=== PATIENT | male | born 2000 | race Caucasian/White ===

== ENCOUNTER 2025-07-05 03:17 | Emergency (ER) | payer MEDICAID, SELFPAY ==
--- OUTSIDE RECORDS SUMMARY | 2025-07-04 19:39 | XMS RPT_ITS ---
Author Name Auto Generated Organization OHIP Care Team Providers Care Foam Caster Name Role Phone ERNIE KING Attending Unavailable WILVER PURVIS Primary Care Unavailable WILVER PURVIS Primary Care Unavailable SUNSHINE WATERS Attending Unavailable BERNY RODRIGUEZ, ZOILA Saini Attending Unavail able PHYSICIAN, NONE Primary Care Unavailable MERLIN RODRIGUEZ, CYNTHIA Attending Unavailable PROBLEMS DATE TYPE CONDITION / CODE ATTENDING STATUS [facility] 07/04/2025 Unknown Dizziness and giddiness / R42(ICD-10) ZOILA ARRIETA MD Active [facility] 06/30/2025 Active Rash / R21(ICD-10) SUNSHINE WATERS Active [facility] 05/12/2025 Active Bilateral impact ed cerumen / H61.23(ICD-10) ERNIE KING Active [facility] 04/11/2025 Admitting Diagnosis Hypersomnia, unspecified / G47.10(ICD-10) CYNTHIA BOYER MD Active [facility] 04/11/2025 Final Diagnosis (Discharge) Hypersomnia, unspecified / G47.10(ICD-10) CYNTHIA BOYER MD Active [facility] PROCEDURES No Procedure Records Found RESULTS CBC Collected: 8:12 PM Status: F Source: [facility] TYPE CODE TESTS RESULT OUT OF RANGE REFERENCE UNITS LAB WBC(LOINC) WBC 13.9 High 4.5-10.8 10 3/mcL LAB RBCCT(LOINC) RBC 5.31 4.50-6.00 10 6/mcL LAB HGB(LOINC) Hgb 15.1 13.0-17.5 G/dL LAB HCT(LOINC) Hct 43.3 40.0-52.0 % LAB MCV(LOINC) MCV 81.4 81.0-100.0 fL LAB MCH(LOINC) MCH 28.3 27.0-33.0 pg LAB MCHC(LOINC) MCHC 34.8 32.0-36.0 G/dL LAB RDW(LOINC) RDW 13.9 11.5-15.5 % LAB PLT(LOINC) Platelet 237 150-450 10 3/mcL LAB MPV(LOINC) MPV 10.0 6.4-10.5 fL Performed By: #### ANEU, CBC , ADIFF, GFR, BMP, W #### [address] [address] .AUTO DIFF Collected: 07/04/2025 8:12 PM Status: F Source: [facility] TYPE CODE TESTS RESULT OUT OF RANGE REFERENCE UNITS LAB RU(LOINC) Neutrophil % 79.1 High 50.0-75.0 % LAB LYM(LOINC) Lymphocyte % 12.0 Low 20.0-40.0 % LAB MON(LOINC) Monocyte % 8.2 2.0-13.0 % LAB EO(LOINC) Eosinophil % 0.4 0.0-6.0 % LAB BAS(LOINC) Basophil % 0.3 0.0-2.5 % LAB ABLYM(LOINC) Lymphocyte, Absolute 1.7 0.9-4.3 10 3/mcL LAB JOSIE(LOINC) Monocyte, Absolute 1.1 0.1-1.4 10 3/mcL LAB AEOS(LOINC) Eosinophil, Absolute 0.1 0.0-0.7 10 3/mcL LAB ABAS(LOINC) Basophil, Absolute 0.0 0.0-0.3 10 3/mcL Performed By: #### ANEU, CBC , ADIFF, GFR, BMP, W #### [address] [address] .NEUABS Collected: 8:12 PM Status: F Source: [facility] TYPE CODE TESTS RESULT OUT OF RANGE REFERENCE UNITS LAB ANEU(LOINC) Neutrophil, Absolute 11.0 High 2.3-8.1 10 3/mcL Performed By: #### ANEU, CBC , ADIFF, GFR, BMP, STU #### [address], [place] [address] .W Collected: 07/04/2025 8:12 PM Status: F Source: [facility] TYPE CODE TESTS RESULT OUT OF RANGE REFERENCE UNITS LAB MDW([facility]) Monocyte Distribution Width 17.41 0.00-20.00 Result Comment: For ED adult patients suspected of sepsis, MDW<=20.0 does not rule out sepsis or risk of sepsis Performed By: #### ANEU, CBC , ADIFF, GFR, BMP, MDW #### [id number] [place], [place] [address] BMP Collected: 07/04/2025 8:12 PM Status: F Source: [facility] TYPE CODE TESTS RESULT OUT OF RANGE REFERENCE UNITS LAB GLU(LOINC) Glucose Level 100 70-105 mg/dL LAB NA(LOINC) Sodium Level 142 136-145 mmol/L LAB K(LOINC) Potassium Level 3.9 3.5-5.1 mmol/L LAB CL(LOINC) Chloride 106 98-107 mmol/L LAB CO2(LOINC) CO2 26 22-29 mmol/L LAB EBAL(LOINC) Electrolyte Balance 10.0 4.0-15.0 mEq/L LAB BUN(LOINC) BUN 18 7-18 mg/dL LAB CRE(LOINC) Creatinine Lvl (s) 0.92 0.67-1.17 mg/dL LAB BC(LOINC) BUN/Creatinine Ratio 20 7-27 ratio LAB CA(LOINC) Calcium Lvl 8.9 8.4-10.2 mg/dL Performed By: #### ANEU, CBC , ADIFF, GFR, BMP, MDW #### [id number] [place], [place] [address] .GFR Collected: 07/04/2025 8:12 PM Status: F Source: [facility] TYPE CODE TESTS RESULT OUT OF RANGE REFERENCE UNITS LAB eGFR(LOINC) Estimated Glomerular Filtration Rate 117 ml/min/1. 73sqm Result Comment: Stages of Chronic Kidney Disease (CKD) Stage Description eGFR(ml/min/1.73 sq.m.) CKD 1 Normal kidney function or >=90 normal kindney function with possible kidney damage (ex. Proteinuria) CKD 2 Kidney damage with mild loss 60-89 of kidney function CKD 3a Mild to moderate loss of kidney 45-59 function CKD 3b Moderate to severe loss of 30-44 of kindey function CKD 4 Severe loss of kidney function 15-29 CKD 5 Kidney failure <15 Note: (go live 2024) the eGFR calculation was updated to the 2020 CKD-EPI creatinine equation without a race factor to calculate the eGFR results. Performed By: #### ANEU, CBC , ADIFF, GFR, BMP, MDW #### [address] [place], [place] [address] PROGRESS Observed: 06/30/2025 4:36 PM Status: COMPLETED Source: [facility] ID: [id number] Author: SUNSHINE WATERS APRN.BUNDLE TIER AND LABELER Service: ? Author Type: Nurse Practitioner Type: Progress Notes Filed: 06/30/2025 17:07 Note Text: PATIENT NAME: Luis F Briones DATE OF : 2000 TODAYS' DATE: 06/30/2025 Recording using Dianxin software for draft documentation of the visit was discussed with the patient/authorized client relations representative; all questions welcomed and answered. Patient/authorized client relations representative agreed to proceed Subjective: The patient is a 25-year-old male presenting for evaluation of a one-week history of pruritic, burning rash of the scrotum and penis. History of Present Illness: The patient is a 25-year-old male presenting with pruritus and burning sensation in the genital area. Pruritus and Burning Sensation in Genital Area: - Onset of symptoms approximately one week ago. - Describes scrotum and penis as "smaller than usual" and "shriveled." - Severe pruritus and burning sensation in the scrotum and penis. - Denies fever, dysuria, or drainage. - Applied clotrimazole cream with significant burning sensation. - Recently started using Tretinoin 0.1% for stretch cardenas; unsure if it contacted the scrotum. - Denies recent sexual activity in the past 6 months; considers STD risk unlikely. 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 - Engages in frequent walking around the pool in a humid environment. 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 - Has lost 20 lbs recently. - History of powerlifting and weight gain; currently trying to lose weight to meet requirements. - History of ACL, MCL, meniscus, and PCL injuries. Review of Systems: Constitutional: (-) fever Genitourinary: (+) decreased testicular size, (+) scrotal pain, (+) genital burning, (+) genital pruritus, (-) genital discharge, (-) dysuria Allergies: Allergies: No Known Allergies Past Medical History: No past medical history on file. Past Surgical History: No past surgical history on file. Family History: No family history on file. Tobacco History: Tobacco Use: Not on file Medications: Current Outpatient Medications Medication Sig Dispense Refill tretinoin (RETIN-A) 0.1 % cream APPLY A THIN LAYER TO THE AFFECTED AREAS EVERY NIGHT nystatin (MYCOSTATIN) powder Apply 1 application to affected area four times daily for 7 days. 15 g 0 fluconazole (DIFLUCAN) 150 mg tablet Take 1 tablet by mouth every 72 hours for 3 doses. 3 tablet 0 carbamide peroxide (DEBROX) 6.5 % otic solution Use 4-5 drops in both ears every hour as needed. (Patient not taking: Reported on 06/30/2025) 15 mL 0 No current facility-administered medications for this visit. Vitals: BP 127/79 (BP Site: Right Arm, BP Position: Sitting, BP Cuff Size: Regular Adult) Pulse 76 Temp 36.3 ?C (97.3 ?F) (Right Tympanic) Resp 18 Ht 185.4 cm (6' 1") Wt 116.3 kg (256 lb 4.6 oz) SpO2 98% BMI 33.81 kg/m? Physical Exam: Physical Exam Vitals reviewed. 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 Constitutional: General: He is not in acute distress. Appearance: He is not ill-appearing, toxic-appearing or diaphoretic. Pulmonary: Effort: Pulmonary effort is normal. Genitourinary: Penis: Erythema and tenderness present. No discharge, swelling or lesions. Neurological: Mental Status: He is alert. Psychiatric: Behavior: Behavior is cooperative. ASSESSMENT/PLAN: (R21) Rash (primary encounter diagnosis) Plan: nystatin (MYCOSTATIN) powder, fluconazole (DIFLUCAN) 150 mg tablet Bright erythema to the bilateral testicles. Will treat fungal rash with nystatin powder and diflucan for 3 doses, 1 dose every 72 hrs. -Keep area clean and dry. Non scented antimicrobial soap and water. -If you have significant itching please avoid heat as this can make the itching worse. Cool compresses for comfort. -Do not pick at the site. This can lead to a secondary infection. -Signs of worsening infection: increased in size, streaking up or down the skin, fever of 101 F or higher, or copious drainage from the site. -If no improvement, follow up with primary care, may need more of a workup than what is offered in express care. -Be seen immediately with worsening symptoms. - See patient instructions for further recommendations. - Pt education along with discharge instructions given to pt - Discussed Red Flag signs and when to go to ER. - Pt agreeable with plan and verbalizes understanding. - Follow up with PCP if symptoms worsen or do not improve in the next 2-3 days. Sunshine Waters APRN.CNP 4:36 PM 06/30/25 Disposition The patient was discharged. Medical Decision Making: Level: 4 - Moderate CNOV Observed: 06/30/2025 4:35 PM Status: COMPLETED Source: [facility] Office Visit (ALEX) LUIS F BRIONES ([id number]) 2000 M Date Time Provider Department 06/30/25 4:35 PM SUNSHINE WATERS During your visit today, we recorded the following information about you: Temperature Pulse Respiration Blood pressure 97.3 degrees 76/minute 18/minute 127/79 Weight Height 116.3 kg 1.854 m Sunshine Waters APRN.CNP 06/30/2025 5:00 PM Addendum (R21) Rash (primary encounter diagnosis) Plan: nystatin (MYCOSTATIN) powder, fluconazole (DIFLUCAN) 150 mg tablet Bright erythema to the bilateral testicles. Will treat fungal rash with nystatin powder and diflucan for 3 doses, 1 dose every 72 hrs. -Keep area clean and dry. Non scented antimicrobial soap and water. -If you have significant itching please avoid heat as this can make the itching worse. Cool compresses for comfort. -Do not pick at the site. This can lead to a secondary infection. -Signs of worsening infection: increased in size, streaking up or down the skin, fever of 101 F or higher, or copious drainage from the site. -If no improvement, follow up with primary care, may need more of a workup than what is offered in [facility] care. -Be seen immediately with worsening symptoms. Sunshine Waters APRN.BUNDLE TIER AND LABELER 06/30/2025 5:07 PM Signed PATIENT NAME: Luis F Briones DATE OF : 2000 TODAYS' DATE: 06/30/2025 Recording using Dianxin software for draft documentation of the visit was discussed with the patient/authorized client relations representative; all questions welcomed and answered. Patient/authorized client relations representative agreed to proceed Subjective: The patient is a 25-year-old male presenting for evaluation of a one-week history of pruritic, burning rash of the scrotum and penis. History of Present Illness: The patient is a 25-year-old male presenting with pruritus and burning sensation in the genital area. Pruritus and Burning Sensation in Genital Area: - Onset of symptoms approximately one week ago. - Describes scrotum and penis as "smaller than usual" and "shriveled." - Severe pruritus and burning sensation in the scrotum and penis. - Denies fever, dysuria, or drainage. - Applied clotrimazole cream with significant burning sensation. - Recently started using Tretinoin 0.1% for stretch cardenas; unsure if it contacted the scrotum. - Denies recent sexual activity in the past 6 months; considers STD risk unlikely. 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 - Engages in frequent walking around the pool in a humid environment. 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 - Has lost 20 lbs recently. - History of powerlifting and weight gain; currently trying to lose weight to meet requirements. - History of ACL, MCL, meniscus, and PCL injuries. Review of Systems: Constitutional: (-) fever Genitourinary: (+) decreased testicular size, (+) scrotal pain, (+) genital burning, (+) genital pruritus, (-) genital discharge, (-) dysuria Allergies: Allergies: No Known Allergies Past Medical History: No past medical history on file. Past Surgical History: No past surgical history on file. Family History: No family history on file. Tobacco History: Tobacco Use: Not on file Medications: Current Outpatient Medications Medication Sig Dispense Refill tretinoin (RETIN-A) 0.1 % cream APPLY A THIN LAYER TO THE AFFECTED AREAS EVERY NIGHT nystatin (MYCOSTATIN) powder Apply 1 application to affected area four times daily for 7 days. 15 g 0 fluconazole (DIFLUCAN) 150 mg tablet Take 1 tablet by mouth every 72 hours for 3 doses. 3 tablet 0 carbamide peroxide (DEBROX) 6.5 % otic solution Use 4-5 drops in both ears every hour as needed. (Patient not taking: Reported on 06/30/2025) 15 mL 0 No current facility-administered medications for this visit. Vitals: BP 127/79 (BP Site: Right Arm, BP Position: Sitting, BP Cuff Size: Regular Adult) Pulse 76 Temp 36.3 ?C (97.3 ?F) (Right Tympanic) Resp 18 Ht 185.4 cm (6' 1") Wt 116.3 kg (256 lb 4.6 oz) SpO2 98% BMI 33.81 kg/m? Physical Exam: Physical Exam Vitals reviewed. 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 Constitutional: General: He is not in acute distress. Appearance: He is not ill-appearing, toxic-appearing or diaphoretic. Pulmonary: Effort: Pulmonary effort is normal. Genitourinary: Penis: Erythema and tenderness present. No discharge, swelling or lesions. Neurological: Mental Status: He is alert. Psychiatric: Behavior: Behavior is cooperative. ASSESSMENT/PLAN: (R21) Rash (primary encounter diagnosis) Plan: nystatin (MYCOSTATIN) powder, fluconazole (DIFLUCAN) 150 mg tablet Bright erythema to the bilateral testicles. Will treat fungal rash with nystatin powder and diflucan for 3 doses, 1 dose every 72 hrs. -Keep area clean and dry. Non scented antimicrobial soap and water. -If you have significant itching please avoid heat as this can make the itching worse. Cool compresses for comfort. -Do not pick at the site. This can lead to a secondary infection. -Signs of worsening infection: increased in size, streaking up or down the skin, fever of 101 F or higher, or copious drainage from the site. -If no improvement, follow up with primary care, may need more of a workup than what is offered in express care. -Be seen immediately with worsening symptoms. - See patient instructions for further recommendations. - Pt education along with discharge instructions given to pt - Discussed Red Flag signs and when to go to ER. - Pt agreeable with plan and verbalizes understanding. - Follow up with PCP if symptoms worsen or do not improve in the next 2-3 days. Sunshine Waters APRN.BUNDLE TIER AND LABELER 4:36 PM 06/30/25 Disposition The patient was discharged. 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 - nystatin (MYCOSTATIN) powder Apply 1 application to affected area four times daily for 7 days. Problem List As Of Date: 06/30/2025 (None) Other instructions from your clinician: (R21) Rash (primary encounter diagnosis) Plan: nystatin (MYCOSTATIN) powder, fluconazole (DIFLUCAN) 150 mg tablet Bright erythema to the bilateral testicles. Will treat fungal rash with nystatin powder and diflucan for 3 doses, 1 dose every 72 hrs. -Keep area clean and dry. Non scented antimicrobial soap and water. -If you have significant itching please avoid heat as this can make the itching worse. Cool compresses for comfort. -Do not pick at the site. This can lead to a secondary infection. -Signs of worsening infection: increased in size, streaking up or down the skin, fever of 101 F or higher, or copious drainage from the site. -If no improvement, follow up with primary care, may need more of a workup than what is offered in [facility] care. -Be seen immediately with worsening symptoms. Prescriptions ordered this encounter Disp Refills Start End NYSTATIN 100,000 UNIT/GRAM TOPICAL P* 15 g 0 06/30/2025 06/30/2025 Route: TOP Sig: Apply 1 application to affected area four times daily for 7 days. FLUCONAZOLE 150 MG TABLET 3 ta* 0 06/30/2025 06/30/2025 Route: PO Sig: Take 1 tablet by mouth every 72 hours for 3 doses. FLUCONAZOLE 150 MG TABLET 3 ta* 0 06/30/2025 07/07/2025 Route: PO Sig: Take 1 tablet by mouth every 72 hours for 3 doses. NYSTATIN 100,000 UNIT/GRAM TOPICAL P* 15 g 0 06/30/2025 07/07/2025 Route: TOP Sig: Apply 1 application to affected area four times daily for 7 days. Medications Discontinued During This Encounter Prescriptions - carbamide peroxide (DEBROX) 6.5 % otic solution (Discontinued) Reported on 06/30/2025 - nystatin (MYCOSTATIN) powder (Discontinued) Apply 1 application to affected area four times daily for 7 days. - fluconazole (DIFLUCAN) 150 mg tablet (Discontinued) Take 1 tablet by mouth every 72 hours for 3 doses. Level of Service: OFFICE/OUTPATIENT ESTABLISHED MOD MDM 30 MIN [54728] LOS History for Encounter Level of Service: OFFICE/OUTPATIENT ESTABLISHED LOW MDM 20 MIN[60996] Date AND Time: 06-30-2025 4:37 PM Recorded by User: SUNSHINE WATERS Encounter Status:Closed by SUNSHINE WATERS on 06/30/25 PROGRESS Observed: 05/12/2025 4:38 PM Status: COMPLETED Source: [facility]NO ID: [id number] Author: ERNIE KING APRN.BUNDLE TIER AND LABELER Service: ? Author Type: Nurse Practitioner Type: Progress Notes Filed: 05/12/2025 16:39 Note Text: [facility] Subjective The patient is a 25-year-old male presenting for cerumen impaction. HPI Cerumen Impaction: - Bilateral cerumen impaction noted during an audiology appointment for hearing loss and tinnitus. - Previous cerumen impaction 4-5 years ago, no prior ear irrigation performed. Review of Systems Ears/Nose/Mouth/Throat: (+) bilateral hearing loss, (+) tinnitus, (+) bilateral ear fullness Objective BP 118/69 (BP Site: Right Arm, BP Position: Sitting, BP Cuff Size: Regular Adult) Pulse 67 Temp 36.3 ?C (97.4 ?F) (Left Tympanic) Resp 16 Wt 124.2 kg (273 lb 14.7 oz) SpO2 96% Physical Exam General: No acute distress. HEENT: External auditory canals with cerumen impaction, cerumen removed manually, tympanic membranes clear, external auditory canals without erythema or edema. MDM 1. Bilateral impacted cerumen (H61.23) - Cerumen impaction in both ears prevented completion of audiological testing for hearing loss and tinnitus. - Manual cerumen removal performed bilaterally; patient tolerated procedure well. - Both tympanic membranes visualized and clear post-procedure; external auditory canals without erythema or edema. - Patient reports improved hearing following cerumen removal. - Educated patient on regular cerumen management, including use of peroxide to soften wax and consideration of an otoscope camera for home monitoring to prevent future impaction and associated hearing loss. - Manual removal of earwax was performed on both ears; your ear canals and eardrums are clear and you report improved hearing. - Use peroxide ear drops at home to flush and soften any new wax build-up and help keep your ears clear. - You may use a small, stick-like camera device (that connects to your phone) to look into your ear canals and monitor for wax accumulation. Procedures CNOV Observed: 05/12/2025 3:55 PM Status: COMPLETED Source: [facility] Office Visit (ALEXANDRU) LUIS F BRIONES ([id number]) 2000 Date Time Provider Department 05/12/25 3:55 PM ERNIE KING During your visit today, we recorded the following information about you: Temperature Pulse Respiration Blood pressure 97.4 degrees 67/minute 16/minute 118/69 Weight 124.2 kg Ernie King APRN.BUNDLE TIER AND LABELER 05/12/2025 4:22 PM Signed EARWAX BLOCKAGE (Cerumen impaction) DESCRIPTION: Overproduction of earwax (cerumen), causing blockage of the external ear canal. Wax is produced by glands in the ear to protect the canal leading from the eardrum to the outside. The amount of wax produced varies from person to person. Some produce so little wax that it never accumulates. Others produce enough to block the canal every few months. SIGNS AND SYMPTOMS: -Decreased hearing. -Ear pain -Plugged feeling in the ear. -Ringing in the ear. RISK INCREASES WITH: -Exposure to dust or debris. -Family history of overproduction of earwax. -Water in the ear which can cause the wax to swell. -Use of cotton swabs in an attempt to clean the ear canal. PREVENTIVE MEASURES: -Avoid areas where the air is eren or filled with debris. This stimulates overproduction of earwax. consider wearing earplugs if you must be in this type of environment. -Monthly use of 1-2 drops of glycerin in the ear may soften the wax and prevent recurrent blockage. TREATMENT: -Buy non-prescription wax-softening ear drops. -Lie down with the affected ear toward the ceiling. -Pull the top of the ear gently up and back toward the back of the head. -Instill the ear drops; use the amount given in the package directions. -Leave the drops in the ear for 20 minutes, continue to lie down, if possible. Plug the ear with cotton. -Sit up, leaning a little toward the affected side. -Use a soft rubber bulb syringe to irrigate the ear canal gently with plain warm water or equal parts warm water and hydrogen peroxide. -Repeat irrigation until the ear feels clear. If the ear doesn't clear, call the physician's office, so that wax can be removed. -DON'T try to remove wax with a stick or cotton swab. MEDICATION: For minor pain, use non-prescription drugs such as acetaminophen. ACTIVITY: No restrictions. Ernie King APRN.BUNDLE TIER AND LABELER 05/12/2025 4:39 PM Signed [facility] Subjective The patient is a 25-year-old male presenting for cerumen impaction. HPI Cerumen Impaction: - Bilateral cerumen impaction noted during an audiology appointment for hearing loss and tinnitus. - Previous cerumen impaction 4-5 years ago, no prior ear irrigation performed. Review of Systems Ears/Nose/Mouth/Throat: (+) bilateral hearing loss, (+) tinnitus, (+) bilateral ear fullness Objective BP 118/69 (BP Site: Right Arm, BP Position: Sitting, BP Cuff Size: Regular Adult) Pulse 67 Temp 36.3 ?C (97.4 ?F) (Left Tympanic) Resp 16 Wt 124.2 kg (273 lb 14.7 oz) SpO2 96% Physical Exam General: No acute distress. HEENT: External auditory canals with cerumen impaction, cerumen removed manually, tympanic membranes clear, external auditory canals without erythema or edema. MDM 1. Bilateral impacted cerumen (H61.23) - Cerumen impaction in both ears prevented completion of audiological testing for hearing loss and tinnitus. - Manual cerumen removal performed bilaterally; patient tolerated procedure well. - Both tympanic membranes visualized and clear post-procedure; external auditory canals without erythema or edema. - Patient reports improved hearing following cerumen removal. - Educated patient on regular cerumen management, including use of peroxide to soften wax and consideration of an otoscope camera for home monitoring to prevent future impaction and associated hearing loss. - Manual removal of earwax was performed on both ears; your ear canals and eardrums are clear and you report improved hearing. - Use peroxide ear drops at home to flush and soften any new wax build-up and help keep your ears clear. - You may use a small, stick-like camera device (that connects to your phone) to look into your ear canals and monitor for wax accumulation. Procedures Allergies As of Date: 05/12/2025 (No Known Allergies) Date Reviewed: 05/12/2025 Reviewed by: Cindi Kelly MA - Fully Assessed Reason for Visit: Ear Problem [38] Cmt: Was told both ears are impacted. Need checked and cleaned. Primary Visit Diagnosis:Bilateral impacted cerumen [H61.23] Order(s):AMBULATORY EAR LAVAGE/IRRIGATION [[id number]] Order #: [id number] carbamide peroxide (DEBROX) 6.5 % otic solutionUse 4-5 drops in both ears every hour as needed.Disp: 15 mLRfl: 0 Prescriptions as of 05/12/2025 - carbamide peroxide (DEBROX) 6.5 % otic solution Use 4-5 drops in both ears every hour as needed. Problem List As Of Date: 05/12/2025 (None) Other instructions from your clinician: EARWAX BLOCKAGE (Cerumen impaction) DESCRIPTION: Overproduction of earwax (cerumen), causing blockage of the external ear canal. Wax is produced by glands in the ear to protect the canal leading from the eardrum to the outside. The amount of wax produced varies from person to person. Some produce so little wax that it never accumulates. Others produce enough to block the canal every few months. SIGNS AND SYMPTOMS: -Decreased hearing. -Ear pain -Plugged feeling in the ear. -Ringing in the ear. RISK INCREASES WITH: -Exposure to dust or debris. -Family history of overproduction of earwax. -Water in the ear which can cause the wax to swell. -Use of cotton swabs in an attempt to clean the ear canal. PREVENTIVE MEASURES: -Avoid areas where the air is eren or filled with debris. This stimulates overproduction of earwax. consider wearing earplugs if you must be in this type of environment. -Monthly use of 1-2 drops of glycerin in the ear may soften the wax and prevent recurrent blockage. TREATMENT: -Buy non-prescription wax-softening ear drops. -Lie down with the affected ear toward the ceiling. -Pull the top of the ear gently up and back toward the back of the head. -Instill the ear drops; use the amount given in the package directions. -Leave the drops in the ear for 20 minutes, continue to lie down, if possible. Plug the ear with cotton. -Sit up, leaning a little toward the affected side. -Use a soft rubber bulb syringe to irrigate the ear canal gently with plain warm water or equal parts warm water and hydrogen peroxide. -Repeat irrigation until the ear feels clear. If the ear doesn't clear, call the physician's office, so that wax can be removed. -DON'T try to remove wax with a stick or cotton swab. MEDICATION: For minor pain, use non-prescription drugs such as acetaminophen. ACTIVITY: No restrictions. Prescriptions ordered this encounter Disp Refills Start End DEBROX 6.5 % EAR DROPS 15 mL 0 05/12/2025 Route: AU Sig: Use 4-5 drops in both ears every hour as needed. Level of Service: OFFICE/OUTPATIENT [facility] 15 MINUTES [04022] Encounter Status:Closed by ERNIE KING on 05/12/25 ALLERGIES DATE TYPE / CODE NAME / CODE REACTION SEVERITY SOURCE Drug Class/[id number](SNO MED CT) NO KNOWN ALLERGIES [facility] ENCOUNTERS ADMIT/DISCHARGE ACCOUNT NUMBER ADMITTING ENCOUNTER CLASS LOCATION SOURCE 07/04/2025/ 5 [id number] [place] 06/30/2025/ 5 [id number] Ambulatory [facility] HospitalBuild ing:[facility] 05/12/2025/ 5 [id number] Ambulatory [facility] HospitalBuild ing:[facility] 04/11/2025/ 5 [id number] Ambulatory ABuilding:[facility] MAIN PAYERS ENCOUNTER [facility]ARANTOR PAYER SUBSCRIBER SOURCE 07/04/2025 LUIS F BOWMAN: [id number] [address] [place], [place] [address]Wmf: () Primary Insurance:[facility] COMMUNITY PLAN INSCOPolicy Number: [id number] e Date:[id number] Name:[facility] J[facility]ior [address] [place] [id number]: LUIS F GUPTAB: [id number] JUSTO [place] [place], [place] [address]Glw: () () [facility] 06/30/2025 Primary Insurance:[employer] [place]: [id number] e Date:0818-67-03Guhc Name:Christy Mayo COLBY: [id number] [place] [address] [facility] 05/12/2025 Primary Insurance:[employer] COMMUNITY [place]AN [place] Number: [id number] e Date:1930-55-55Dela Name:Christy Mayo COLBY: [id number] [place] [address] [facility] 04/11/2025 LUI SF BOWMAN: [id number] JUSTO KOKO BEASLEYMAR[place] [address] Primary Insurance:[facility] INSCOPolicy Number: [id number] e Date:[id number] Name:RHIANNON Callejas [address] [place] [id number]: LUIS F GUPTAB: [id number] JUSTO [place], [place] [address]Pln: () [facility]
[2025-07-05 03:19] VITALS: BP 148/99; PULSE 98; RESP 24; TEMP 37.2; O2SAT 96; BMI 34.5
--- NOTE | 2025-07-05 04:12 | EX.ED.DYSGE1 ---
HPI History of Present Illness Chief Complaint: Rash Informant: patient Narrative Narrative: Patient is a 25-year-old male with no significant PMHx presenting with severe scrotal pain and a rash. - Reports onset of symptoms approximately one week ago, including severe pain in the scrotum and a rash. - Initially evaluated at urgent care, diagnosed with a yeast infection, and prescribed fluconazole (3 doses, one every 3 days) and nystatin powder. - Subsequently seen by a information systems technician 3-4 days ago, diagnosed with psoriasis, and prescribed a topical cream. - Has been using medications as directed but reports no significant relief. - Describes scrotal pain as "extreme," likening the sensation to "sandpaper"; pain is bilateral but more pronounced on the right side. - Reports associated symptoms of scrotal skin shrinkage and lesions on the scrotum. - Denies any spread of the rash beyond the initial area. - Reports onset of systemic symptoms 2 days ago, including fever, nausea, emesis, congestion, rhinorrhea, and lightheadedness and concerned due to these sx that the rash on his scrotum is causing them due to "a bacterial infection." - Describes feeling "flushed" and experiencing "burning" skin; emesis occurred 5 hours ago. - Reports a cough with yellow sputum production 5 hours ago; denies dyspnea. - Denies abdominal pain. - Has not been sexually active for 8 months. 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 - Has been unable to work for the past 5 days due to pain and discomfort. [facility] Medical History Concussion Medical History no medical history Home Medications Medication Instructions Recorded Last Taken Type cephalexin 500 mg capsule 500 mg PO Q6 #40 CAPSULES 07/05/25 Unknown Rx hydrocodone-acetaminophen 5-325mg 1 tab PO Q6H PRN PRN Pain 3 days 07/05/25 Unknown Rx 5mg-325mg #8 TABLETS valacyclovir 1 gram tablet 1,000 mg PO BID #14 tabs 07/05/25 Unknown Rx Allergy/AdvReac Type Severity Reaction Status Date / Time No Known Allergies Allergy Verified 07/05/25 03:21 Surgical History S/P ACL surgery Social History Smoking Status: Current some day smoker tobacco type: cigarettes ROS ROS ED Constitutional Constitutional ED: Reports chills and fever(s) Eyes Eyes: Denies change in vision or diplopia ENT ENT ED: Reports rhinorrhea and sore throat; Denies ear pain Cardiovascular Cardiovascular: Denies chest pain or palpitations Respiratory/Chest Respiratory/Chest: Reports cough and sputum; Denies dyspnea Gastrointestinal Gastrointestinal: Denies abdominal pain, diarrhea, nausea or vomiting Genitourinary Genitourinary ED: Reports as per HPI and scrotal pain; Denies dysuria or hematuria Musculoskeletal Musculoskeletal: Denies back pain or neck pain Integumentary Reports rash; Denies abscess Neurologic Neurologic: Denies headache(s), paresthesias or weakness Psychiatric Psychiatric: Denies anxiety or suicidal thoughts EXAM Physical Exam Const Vital Signs: 07/05/25 03:19 Temperature 98.9 F Temperature Source Axillary Pulse Rate 98 Respiratory Rate 24 H Blood Pressure 148/99 H Blood Pressure Mean 115 Pulse Ox 96 Oxygen Delivery Method Room Air Positive well nourished and well developed Constitutional Narrative: Overall very well-appearing General Appearance ED: well developed and NAD HEENT Reports moist mucous membranes HEENT Narrative: Mild posterior oropharyngeal erythema without exudates or asymmetry or trismus normocephalic and atraumatic Eyes PERRL and EOMs intact bilaterally Neck full ROM and supple Resp normal respiratory effort and clear to auscultation bilaterally Cardio regular rate, regular rhythm and no murmurs Rate: Negative for tachycardic GI non-tender and non-distended Auscultation: normoactive bowel sounds Palpation: soft Narrative: Normal unaffected penis. Scrotum is diffusely erythematous, there are several very small white papules versus pustules present, there is no vesicle, all of this area is extremely tender superficially, the testicles are intact and nontender overall, and there is some erythema that is less tender on the right proximal inner thigh. There is no inguinal lymphadenopathy. There is no ulcerated lesions. There is no extension of the rash elsewhere. The perineum is unaffected and nontender. Back/Spine no CVA tenderness General Back: other FROM Extremity normal to inspection General Extremety ED: Negative for edema, pulses abnormal or tenderness General Extremity: Negative for edema or pulses abnormal Neuro oriented x3, CN's II-XII intact bilaterally and no sensory deficits noted Sensorium / Orientation: awake and alert Motor Exam: strength 5/5 throughout Psych Mood & Affect: anxious Skin no wounds Skin Narrative: Rash on scrotum see above MDM MDM MDM Narrative Medical decision making narrative: My suspicion is that the patient has a URI caused by a virus in addition to what ever is causing the scrotal rash. He states he is on a cream that is supposed to be an immunosuppressant for psoriasis that is spreading to his scrotum and was told it was post to help within 1-3 days but he is on day #4 and it is not helping. He has had multiple doses of Diflucan and that has not affected him yet. I advised him that he does not need to take the third dose of Diflucan, and I am happy to obtain labs in order to rule out systemic involvement of this rash which I am had a relatively low suspicion for. Also obtaining a COVID/influenza/RSV swab which was negative. His labs are unremarkable. White blood count just out of the normal range and no bands. Normal lactic acid and normal vital signs, benign exam all arguing against sepsis. I suspect he has a viral URI that is a different virus and we tested for, and my suspicion is that those symptoms are unrelated to his scrotal pain. It is possible this is scrotal cellulitis. I am happy to cover him with an antibiotic, and he is less likely to get a yeast infection from this since he has had several doses of oral fluconazole. He is wondering if he should use the cream, he does not know what it is called, so I cannot make a medical judgment on that but I recommend following up with his information systems technician especially if they told him the cream was supposed to help within 1-3 days and it has not yet anyway. He is also asking about possibility of STDs. I do not think any of this looks like syphilis, and nothing consistent with GC or chlamydia here. There are some small pustules, that may or may not be related to herpes simplex. He is amenable to trying a course of valacyclovir understanding that given the duration of the symptoms may be less effective but reasonable to try given its low side effect profile. Lab Data Attestation: I reviewed the patient's lab results. Labs: Laboratory Results - last 24 hr 07/05/25 04:20 WBC 11.1 H RBC 4.94 Hgb 13.6 Hct 40.7 MCV 82.4 MCH 27.5 MCHC 33.4 RDW Std Deviation 38.3 RDW Coeff of Tor 12.8 Plt Count 226 MPV 12.2 H Immature Gran % (Auto) 0.500 Neut % (Auto) 73.7 H Lymph % (Auto) 14.7 L L[place]kin % (Auto) 10.1 H Eos % (Auto) 0.7 Baso % (Auto) 0.3 Absolute Neuts (auto) 8.2 H Absolute Lymphs (auto) 1.63 Nucleated RBC % 0 Sodium 140 Potassium 4.3 Chloride 107 Carbon Dioxide 21.6 Anion Gap 11 BUN 16 Creatinine 0.90 Estim Creat Clear Calc 166.54 Est GFR (MDRD) Non-Af 120 BUN/Creatinine Ratio 17.4 Glucose 112 H Lactic Acid 1.5 Calcium 8.7 Discharge Plan Triage Chief Complaint: Rash ED Provider: Hiro Cedeno Dx/Rx/DC Orders Clinical Impression: Cellulitis of scrotum, Viral URI with cough Instructions: Cellulitis Dc Prescriptions: New cephalexin 500 mg capsule 500 mg PO Q6 Qty: 40 0RF valacyclovir 1 gram tablet 1,000 mg PO BID Qty: 14 0RF hydrocodone-acetaminophen 5-325 mg tablet 1 tab PO Q6H PRN PRN (Reason: Pain) 3 Days Qty: 8 0RF Primary Care Provider: Care Physician,No Primary Referrals: Your information systems technician [Other] - As soon as possible Print Language: Kiswahili Disposition Disposition: Home, Self Care
[2025-07-05 04:31] LABS: Hematocrit 40.7 % (40-54); Hemoglobin 13.6 g/dL (13.0-16.5); Immature Granulocytes Count 0.060 X10^3/uL (0.0-0.0); Mean Corp Hgb Conc 33.4 g/dL (32-36); Mean Corpuscular Volume 82.4 fL (80-94); Mean Platelet Vol. 12.2 fl (6.2-12.0); NRBC Flagged by Analyzer 0 % (0-5); Platelet Count 226 K/mm3 (150-450); RBC Distribution Width CV 12.8 % (11.6-14.6); RBC Distribution Width SD 38.3 fl (35.1-43.9); Red Blood Count 4.94 M/mm3 (4.6-6.2); White Blood Count 11.1 K/mm3 (4.4-11.0)
[2025-07-05 04:50] LABS: Anion Gap 11 (5-15); BUN 16 mg/dL (4-19); BUN/Creat Ratio 17.4 RATIO (10-20); Calcium,Total 8.7 mg/dL (7.6-11.0); Carbon Dioxide 21.6 mmol/L (21.0-32.0); Chloride 107 mmol/L (98-108); Estimated Creatinine Clearance 166.54 ml/min (50-250); Glucose 112 mg/dL (70-99); Potassium 4.3 mmol/L (3.3-5.1)
[2025-07-05 05:56] VITALS: BP 131/88; PULSE 67; RESP 20; TEMP 37.2; O2SAT 96
[2025-07-05] MEDS: HYDROcodone Bitartrate/Apap 5/325 Tablet PO (05:57)
== END 2025-07-05 06:18 | disposition home or self-care (01) ==
PROVIDERS: Emergency Provider Emergency Medicine; Visit Provider Emergency Medicine
DX: N49.2 Inflammatory disorders of scrotum (principal); J06.9 Acute upper respiratory infection, unspecified; R05.9 Cough, unspecified; F17.210 Nicotine dependence, cigarettes, uncomplicated
CPT/HCPCS: 80048; 83605; 85025; 87631; 99283; A4216